=== PATIENT | female | born 2000 ===

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

== ENCOUNTER 2019-02-28 17:38 | Emergency (ER) | payer OTHER ==
[2019-02-28 18:13] VITALS: BP 127/88; PULSE 83; RESP 20; TEMP 98.8; O2SAT 98
[2019-02-28 18:52] LABS: APPEARANCE,URINE Slightly Cloudy; BILIRUBIN,URINE NEGATIVE (NEGATIVE); COLOR,URINE Yellow; GLUCOSE, URINE (UA) NEGATIVE (NEGATIVE); KETONES,URINE NEGATIVE (NEGATIVE); LEUKOCYTE ESTERASE ,URINE NEGATIVE (NEGATIVE); NITRATE,URINE NEGATIVE (NEGATIVE); OCCULT BLOOD,URINE TRACE INTACT (NEG-TRACE); UROBILINOGEN,URINE 0.2 (0.2-1.0 EU)
[2019-02-28 19:12] LABS: BACTERIA TRACE (< 1+); CRYSTALS 3+ (0-3 AVE/HPF); RBC,URINE 0-2 (0-3AV/HPF); WBC,URINE 0-2 (0-5AV/HPF)
== END 2019-02-28 20:33 | disposition home or self-care (01) | DRG 605 ==
LOC: ED 17:38
DX: S40.011A Contusion of right shoulder, initial encounter (principal); Y04.2XXA Assault by strike against or bumped into by another person, initial encounter; M25.521 Pain in right elbow; M25.552 Pain in left hip; R10.9 Unspecified abdominal pain
CPT/HCPCS: 73030; 73070; 81001; 84703; 99283; 99284